=== PATIENT | male | born 1940 | race Caucasian/White ===

== ENCOUNTER 2024-05-08 22:40 | Observation (INO) | payer MEDICARE, MEDICAID ==
[~2024-05-08] VITALS: Ht 177.8 cm; Wt 82.1 kg
[~2024-05-08 22:40] MED LIST: ALPRAZOLAM0.25 MG PO; ASPIRIN EC325 MG PO; CLONIDINE HCL0.1 MG PO; CYCLOBENZAPRINE10 MG PO; DICLOFENAC SODI50 MG PO; HYDROCODON-ACE1 EA11 PO; LISINOPRIL20 MG PO; METOPROLOL SUCC50 MG PO; NITROGLYCERIN0.4 MG SL; NORCO 5-325 TA1 EACH PO; PRILOSEC OTC20 MG PO; RANITIDINE HCL150 MG PO; TURMERIC500 M1 PO
[2024-05-08] MEDS ORDERED: IBLOOD GLUCOSE TEST STRIP 1 EA TEST XX ONE (22:45)
[2024-05-08] MEDS ORDERED: GABAPENTIN300 MG PO (23:03)
[2024-05-08] MEDS ORDERED: HYDROCODON-ACE1 EA10 PO (23:03)
[2024-05-08] MEDS ORDERED: LISINOPRIL40 MG PO (23:04)
[2024-05-08] MEDS ORDERED: OMEPRAZOLE40 MG PO (23:04)
[2024-05-08 23:05] LABS: BASOPHILS 0.9 % (0-2); EOSINOPHILS 1.8 % (0-6); HEMATOCRIT 47.3 % (35.0-50.0); HEMOGLOBIN 15.6 g/dL (12.0-18.0); LYMPHOCYTES 20.9 % (24-44); MCH 30.2 (27-36); MCHC 32.9 g/dl (30-36); MCV 91.7 fl (81-99); MONOCYTES 8.1 % (0-12); NEUTROPHILS 68.3 % (39-80); PLATELET COUNT 268 K/uL (140-440); RBC 5.16 M/ul (4.3-5.7); RDW 13.5 (10.5-15.0)
[2024-05-08 23:22] LABS: PROTIME 12.5 Sec (11.2-14.2)
[2024-05-08] MEDS ORDERED: hydrALAZINE HCL 20 MG/ML VIAL IV ONE (23:30)
[2024-05-08 23:31] LABS: ALBUMIN 3.6 g/dL (3.4-5.0); ANION GAP 14.6 (7-21); BILIRUBIN, TOTAL 0.7 ng/dL (0.2-1.0); BUN/CREATININE RATIO 14.92 (6.0-28.6); CREATININE, SERUM 1.34 mg/dL (0.70-1.30); POTASSIUM 3.6 mmol/L (3.5-5.1); PROTEIN, TOTAL 7.2 g/dL (6.4-8.2)
[2024-05-09] VITALS (12 sets, daily range): BP systolic 122–185; BP diastolic 67–702
[2024-05-09 00:19] LABS: BILIRUBIN, URINE NEGATIVE (negative); BLOOD/HGB, URINE NEGATIVE (Negative); KETONE, URINE NEGATIVE (Negative); LEUK ESTERASE, URINE NEGATIVE (negative); NITRITE, URINE NEGATIVE (negative)
[2024-05-09 00:32] LABS: AMPHETAMINES, URINE NEGATIVE (NEGATIVE); BARBITURATES, URINE NEGATIVE (NEGATIVE); BENZODIAZEPINE, URINE NEGATIVE (NEGATIVE); BUPRENORPHINE, URINE NEGATIVE (NEGATIVE); CANNABINOID, URINE NEGATIVE (NEGATIVE); COCAINE, URINE NEGATIVE (NEGATIVE); ECSTASY, URINE NEGATIVE (NEGATIVE); FENTANYL, URINE NEGATIVE (NEGATIVE); METHADONE, URINE NEGATIVE (NEGATIVE); OPIATES, URINE NEGATIVE (NEGATIVE); OXYCODONE, URINE NEGATIVE (NEGATIVE); PHENCYCLIDINE, URINE NEGATIVE (NEGATIVE)
[2024-05-09] MEDS ORDERED: HYDROCODONE/ACETA 5/325 TAB PO ONE ×2 (00:45→08:00)
[2024-05-09] MEDS ORDERED: ACETAMINOPHEN 325 MG TAB PO PRN ×2 (01:00→09:00)
[2024-05-09] MEDS ORDERED: ondansetron HCL 4 MG/2 ML VIAL IV PRN ×2 (01:00→09:00)
[2024-05-09] MEDS ORDERED: LABETALOL HCL 20 MG/4 ML VIAL IV ONE (01:15)
[2024-05-09 08:10] LABS: BASOPHILS 0.8 % (0-2); EOSINOPHILS 1.5 % (0-6); HEMATOCRIT 43.5 % (35.0-50.0); HEMOGLOBIN 14.7 g/dL (12.0-18.0); LYMPHOCYTES 30.7 % (24-44); MCH 30.7 (27-36); MCHC 33.9 g/dl (30-36); MCV 90.5 fl (81-99); MONOCYTES 9.3 % (0-12); NEUTROPHILS 57.7 % (39-80); PLATELET COUNT 275 K/uL (140-440); RBC 4.81 M/ul (4.3-5.7); RDW 13.2 (10.5-15.0)
[2024-05-09 08:24] LABS: ALBUMIN 3.4 g/dL (3.4-5.0); ALBUMIN/GLOBULIN RATIO 1.1 (1.1-2.4); ANION GAP 14.4 (7-21); BILIRUBIN, TOTAL 0.7 ng/dL (0.2-1.0); BUN/CREATININE RATIO 12.68 (6.0-28.6); CALCIUM 8.8 mg/dL (8.5-10.1); CHOLESTEROL/HDL RATIO 2.2; CREATININE, SERUM 1.34 mg/dL (0.70-1.30); MAGNESIUM 1.7 mg/dL (1.8-2.4); PHOSPHORUS, INORGANIC 4.1 mg/dL (2.5-4.9); POTASSIUM 3.4 mmol/L (3.5-5.1); PROTEIN, TOTAL 6.5 g/dL (6.4-8.2)
[2024-05-09] MEDS ORDERED: CLOPIDOGREL BISULFATE 75 MG TAB PO SCH (09:00)
[2024-05-09] MEDS ORDERED: ASPIRIN 81 MG CHEW PO SCH (09:00)
[2024-05-09] MEDS ORDERED: METOPROLOL TART50 MG PO (09:35)
[2024-05-09] MEDS ORDERED: COLACE100 MG PO (11:06)
[2024-05-09] MEDS ORDERED: LIPITOR40 MG PO (11:07)
[2024-05-09] MEDS ORDERED: PHARMACY RENAL DOSE ADJUSTMENT 1 DOSE MISC PO SCH (12:00)
[2024-05-09] MEDS ORDERED: KETOROLAC TROMETHAMINE 15 MG/ML VIAL IV ONE (13:15)
[2024-05-09] MEDS ORDERED: AMOXICILLIN/CLAVULANATE K 875 MG TAB PO SCH (17:00)
[2024-05-09] MEDS ORDERED: HYDROCODONE/ACETA 5/325 TAB PO PRN (18:30)
[2024-05-09] MEDS ORDERED: ATORVASTATIN 40 MG TAB PO SCH (21:00)
[2024-05-09] MEDS ORDERED: GABAPENTIN 300 MG CAP PO SCH (21:00)
--- NOTE | 2024-05-09 21:41 | EKG ---
[facility] [address] [facility] [place] [address] Signed Normal sinus rhythm Right bundle branch block Possible Inferior infarct , age undetermined Abnormal ECG When compared with ECG of 12-JAN-2017 09:40, Right bundle branch block is now present Borderline criteria for Inferior infarct are now present Confirmed by Mariluz Weeks MD () on 05/09/2024 9:40:52 PM Electronically Signed By: MARILUZ WEEKS MD [id number] PATIENT NAME: DIMITRY WALKER MARISOL Electrocardiogram DATE OF : 38 PHYSICIAN: MARILUZ WEEKS MD REPORT #: [id number] REPORT IS CONFIDENTIAL AND NOT TO BE RELEASED WITHOUT AUTHORIZATION
[2024-05-10 01:01] VITALS: BP 136/66
[2024-05-10 01:15] VITALS: BP 136/66
[2024-05-10 05:31] LABS: BASOPHILS 0.7 % (0-2); EOSINOPHILS 1.6 % (0-6); HEMATOCRIT 40.2 % (35.0-50.0); HEMOGLOBIN 13.6 g/dL (12.0-18.0); LYMPHOCYTES 26.2 % (24-44); MCH 30.7 (27-36); MCHC 33.8 g/dl (30-36); MCV 90.8 fl (81-99); MONOCYTES 10.6 % (0-12); NEUTROPHILS 60.9 % (39-80); PLATELET COUNT 238 K/uL (140-440); RBC 4.42 M/ul (4.3-5.7); RDW 13.5 (10.5-15.0)
[2024-05-10 05:47] LABS: ALBUMIN 3.1 g/dL (3.4-5.0); ALBUMIN/GLOBULIN RATIO 1.07 (1.1-2.4); ANION GAP 11.5 (7-21); BILIRUBIN, TOTAL 0.8 ng/dL (0.2-1.0); CALCIUM 8.8 mg/dL (8.5-10.1); CREATININE, SERUM 1.3 mg/dL (0.70-1.30); POTASSIUM 3.5 mmol/L (3.5-5.1)
[2024-05-10 05:58] VITALS: BP 157/99
[2024-05-10 06:28] VITALS: BP 157/99
[2024-05-10] MEDS ORDERED: FOLIC ACID 1 MG TAB PO SCH (08:00)
[2024-05-10] MEDS ORDERED: THIAMINE HCL 100 MG TAB PO SCH (08:00)
[2024-05-10] MEDS ORDERED: PANTOPRAZOLE SODIUM 40 MG TABEC PO SCH (09:00)
[2024-05-10 10:09] VITALS: BP 164/89
[2024-05-10] MEDS ORDERED: CLOPIDOGREL75 MG PO (10:47)
[2024-05-10] MEDS ORDERED: AMOX TR-K CLV1 EAC1 PO (10:47)
[2024-05-10 10:48] VITALS: BP 164/89
[2024-05-10] MEDS ORDERED: LIPITOR40 MG PO (10:48)
[2024-05-10] MEDS ORDERED: ASPIRIN 81 MG CHEW PO SCH (21:00)
== END 2024-05-10 11:40 | disposition home or self-care (01) ==
LOC: ED 22:40 → MS 22:41
PROVIDERS: Internal Medicine; ADMIT Family Medicine; ATTEND Family Medicine
DX: G45.9 Transient cerebral ischemic attack, unspecified (principal); J32.3 Chronic sphenoidal sinusitis; R29.701 NIHSS score 1; I25.10 Atherosclerotic heart disease of native coronary artery without angina pectoris; Z95.1 Presence of aortocoronary bypass graft; F03.90 Unspecified dementia, unspecified severity, without behavioral disturbance, psychotic disturbance, mood disturbance, and anxiety; I10 Essential (primary) hypertension; Z88.2 Allergy status to sulfonamides; Z79.82 Long term (current) use of aspirin; Z79.899 Other long term (current) drug therapy
CPT/HCPCS: 36415; 70450; 70496; 70498; 70551; 71045; 80053; 80061; 80307; 81003; 83036; 83735; 84100; 84484; 85025; 85610; 85730; 92523; 93005; 93010; 93306; 93880; 96375; 97162; 97166; 97530; 99285-25; A9270; G0378; J0360; J1885; J2405; Q3014